=== PATIENT | male | born 1985 | race Caucasian/White ===

== ENCOUNTER 2020-11-06 13:54 | Emergency (ER) | payer OTHER, SELFPAY ==
[2020-11-06 13:55] VITALS: BP 196/114; PULSE 87; RESP 16; TEMP 36.6; O2SAT 97; BMI 32.3
[2020-11-06 14:24] VITALS: BP 147/87; PULSE 75; RESP 14; TEMP 36.2; O2SAT 99; BMI 31.4
[2020-11-06 14:50] VITALS: BP 154/99; PULSE 97; RESP 20; TEMP 36.6; O2SAT 98; BMI 26.4
--- NOTE | 2020-11-06 14:53 | [facility].EDGENADL ---
ED Disposition Clinical Impression: Low back pain Qualifiers: Chronicity: acute Back pain laterality: unspecified Sciatica presence: without sciatica Qualified Code(s): M54.5 - Low back pain Disposition: Home, Self-Care Condition on Discharge: Fair Instructions: DI for Low Back Pain Additional Instructions: Additional instructions for BACK PAIN: See your physician as soon as possible for further evaluation. Return immediately if back pain becomes intolerable, or if fever, numbness or weakness of your legs, loss of control of your bowels or bladder. Additional instructions for CONTROLLED SUBSTANCES: You have been prescribed a medication that is a controlled substance. Controlled substances include pain medications known as opiates and sedative nerve medications known as benzodiazepines. Tramadol, fioricet, and gabapentin are also controlled substances. Some common opiates include: Codeine (such as Tylenol #3) Hydrocodone (Vicodin, Lortab, Lorcet, [place]) Oxycodone (Percocet, Percodan, Oxycodone, Oxy IR) Some common benzodiazepines include: Diazepam (Valium) Lorazepam (Ativan) Alprazolam (Xanax) Clonazepam (Klonopin) Oxazepam (Serax) All of these controlled substances are highly addictive and frequently abused. Misuse can and frequently does lead to addiction as well as overdose and . Medication should be stored in a locked cabinet or other secure storage unit. Do not store the medication in a motor vehicle. Short term supplies, 3 days or less, are prescribed because of the highly addictive nature of the medication. Any of the controlled substance medication NOT taken should be disposed of properly and NOT SAVED. The recommended method of disposing of unused medications is: Place the medicines in a sealable plastic bag. If the medicine is a solid, crush it or add water to dissolve it. Add something undesirable (cat litter, coffee grounds, etc.) Dispose of sealed bag in household trash Do not flush or pour unused medicines down a sink or drain. Controlled substances should not be shared, given away or sold. Because of the addictive nature and frequent abuse, these medications are sometimes stolen. These medications should be kept in a safe place where they cannot be stolen. Do not keep them in your car or purse. Lost or stolen prescriptions for controlled substances WILL NOT BE REFILLED in this emergency department, regardless of whether a police report was filed. Prescriptions: Hydrocod/Acet 5/325 mg [[place] 5/325mg tablet] 1 tab PO Q6HP PRN #10 tab PRN Reason: Pain Transmission Status: [id number] predniSONE [Prednisone 20mg Tab] 20 mg PO BID #10 tab Transmission Status: [id number] Referrals: Eleuterio Tenorio [Primary Care Provider] - - Critical Care Critical Care Time: No Attestation: On 11/06/20, the high probability of a clinically significant, sudden or life threatening deterioration of the following system(s) required my full and direct attention, intervention and personal management. The time I documented below is in addition to time spent performing reported procedures but includes the following listed in this critical care notation. Medical Decision Making - Carlos Alberto Inquiry Pt receiving controlled substance: Yes Carlos Alberto was queried for this patient: Yes Risks and benefits of using a controlled substance: were discussed with pt by me Vital Signs: 11/06/20 13:55 11/06/20 14:24 11/06/20 14:50 Temperature 98 F 97.2 F L 98 F Temperature Source Oral Tympanic Oral Pulse Rate [Radial] 87 75 97 H Respiratory Rate 16 14 20 Blood Pressure [Right Arm] 196/114 H 147/87 H 154/99 H Blood Pressure Mean [Right Arm] 141 107 117 Blood Pressure Position [Right Arm] Sitting Sitting 02 Sat by Pulse Oximetry 97 99 98 Oxygen Delivery Method Room Air Room Air Room Air - Lab Data Lab Results 11/06/20 14:30: Urine Color Yellow, Urine Appea
--- NOTE | 2020-11-06 14:54 | CT_ITS ---
PROCEDURE: CT ABDOMEN PELVIS WO CON CLINICAL INDICATION: R/O STONE COMPARISON: No exams were available for comparison TECHNIQUE: Axial images obtained with sagittal and coronal reformats. All CT scans at the facility use one or more dose reduction, viz: automated exposure control, ma/kV adjustment per patient size (including targeted exams where dose is matched to indication, i.e. head), or iterative reconstruction technique. FINDINGS: Lower thorax: There is minimal bilateral basilar atelectasis ABDOMEN: Liver: No masses or biliary dilatation. Gallbladder: Nondistended. No radio opaque stones. Pancreas: No masses or peripancreatic fluid collections. Spleen: unremarkable Adrenals: unremarkable Kidneys/ureters: The kidneys are normal in size and no calculi and there is no obstructive uropathy ABDOMEN & PELVIS: Stomach bowel: The stomach and duodenal sweep appear normal. The small bowel is normal. Peritoneum: There is a small umbilical hernia containing fat only. Lymph nodes: No enlarged lymph nodes apparent. Vasculature: No evidence of abdominal aortic aneurysm. No retroperitoneal hemorrhage evident. Bones: There is mild diffuse levo scoliotic curvature of the thoracolumbar junction. PELVIS: Reproductive: unremarkable Bladder: Nondistended. No obvious stones or masses. The prostate is borderline enlarged. Appendix: Unremarkable. No distention or periappendiceal phlegmonous change. IMPRESSION: Small umbilical hernia fat only, no acute abdominal or pelvic pathology identified Dictated by: Dr. Kwabena Mariee MD 11/06/2020 15:41 Dr. Kwabena Mariee MD in [place] 11/06/2020 15:41
[2020-11-06 15:00] LABS: Basophils # 0.1 K/mm3 (0-0.2); Basophils % 0.5 % (0.1-2.0); Eosinophils # 0.1 K/mm3 (0.0-0.4); Eosinophils % 1.3 % (0.1-12.0); Hematocrit 44.8 % (42.0-52.0); Hemoglobin 14.8 g/dL (14.1-18.0); Lymphocytes # 2.6 K/mm3 (0.7-4.5); Lymphocytes % 25.4 % (10-50); Mean Corpuscular Hemoglobin 29.8 pg (27.0-31.2); Mean Platelet Volume 8.6 fl (7.4-10.4); Monocytes # 0.5 K/mm3 (0.1-1.0); Monocytes % 4.6 % (1.7-9.3); Neutrophils # 6.9 K/mm3 (1.8-7.8); Platelet Count 322 K/mm3 (142-424); Red Blood Count 4.98 M/mm3 (4.60-6.20); Red Cell Distribution Width 12.2 % (11.5-17.5); White Blood Count 10.1 K/mm3 (4.8-10.8)
[2020-11-06 15:02] LABS: Chloride 103 mmol/L (98-107); Potassium 4.2 mmoL/L (3.5-5.1); Sodium 140 mmol/L (136-145)
[2020-11-06 15:03] LABS: Microscopic, Urine URINE MICROSCOPIC (MICROSCOPIC)
--- NOTE | 2020-11-06 15:03 | CT_ITS ---
PROCEDURE: CT LUMBAR SPINE WO CON CLINICAL HISTORY: low back pain COMPARISON: No exams were available for comparison TECHNIQUE: Axial images obtained with sagittal and coronal reformats. All CT scans at the facility use one or more dose reduction, viz: automated exposure control, ma/kV adjustment per patient size (including targeted exams where dose is matched to indication, i.e. head), or iterative reconstruction technique. FINDINGS: There is mild diffuse levo scoliotic curvature of the thoracolumbar junction. All lumbar vertebrae appear intact. There is moderate disc space narrowing at the L3-4 level, the remaining disc spaces are normal. The spinal canal is normal in size throughout. There is mild diffuse bulging of the annulus fibrosus at the L3-4 level causing mild neural foraminal compromise bilaterally at this level. The remaining disc appear normal. The SI joints are normal. IMPRESSION: Mild levo scoliotic curvature, mild diffuse bulging annulus fibrosus L4-5 Dictated by: Dr. Kwabena Mariee MD 11/06/2020 15:45 Dr. Kwabena Mariee MD in [facility] 11/06/2020 15:45
[2020-11-06 15:05] LABS: Alanine Aminotransferase 58 U/L (12-78); Albumin Level 5.1 g/dl (3.5-5.0); Albumin/Globulin Ratio 1.5 (1.1-1.8); Alkaline Phosphatase 110 U/L (38-126); Anion Gap 10.2 mEq/L (5-15); Aspartate Amino Transferase 51 U/L (17-59); Bilirubin,Total 1.3 mg/dl (0.2-1.3); Blood Urea Nitrogen 12 mg/dl (9-20); Calcium 10.1 mg/dl (8.4-10.2); Carbon Dioxide 31 mmol/L (22.0-30.0); Creatinine Clearance Estimated 165 mL/min (50-200); Estimated Glomerular Filt Rate 110 ml/min (>60); GFR (African American) 133 ML/MIN (>60); Globulin 3.5 g/dL (1.3-3.2); Glucose 100 mg/dl (74-100); Total Protein,Serum 8.6 g/dl (6.3-8.2)
[2020-11-06 15:07] LABS: Appearance,Urine CLEAR (Clear); Bilirubin,Urine Negative (Negative); Blood, Urine Negative (Negative); Color,Urine YELLOW (Yellow); Glucose,Urine (UA) Negative (Negative); Ketones,Urine Negative (Negative); Leukocyte Esterase,Urine Negative (Negative); Nitrate,Urine Negative (Negative); Protein,Urine Negative (Negative)
[2020-11-06 15:13] LABS: Apearance,Urine Clear (Clear); Color,Urine Yellow (Yellow)
[2020-11-06 15:14] LABS: Bilirubin,Urine Negative (Negative); Blood, Urine 2+ (Negative); Glucose,Urine (UA) Negative (Negative); Ketones,Urine Negative (Negative); Protein,Urine Negative (Negative); UTC Leukocyte Esterase,Urine Negative (Negative); UTC Nitrate,Urine Negative (Negative); Urobilinogen,Urine 1 EU/dl (0.2)
[2020-11-06 16:42] VITALS: BP 153/100; PULSE 89; RESP 16; TEMP 36.6; O2SAT 98
== END 2020-11-06 16:43 | disposition home or self-care (01) ==
LOC: UTC 14:37 → ER 14:38
PROVIDERS: Nurse Practitioner Family; Emergency Provider Emergency Medicine; PCP Family Medicine
DX: M54.5 Low back pain (principal)
CPT/HCPCS: 72131; 74176; 80053; 81001; 81003; 85025; 96365; 96375; 99283; J2405

== ENCOUNTER 2022-04-13 18:56 | Outpatient (CLI) | payer SELFPAY | END 2022-04-13 19:37 | disposition home or self-care (01) | PROVIDERS: Visit Provider Nurse Practitioner | DX: Z02.1 Encounter for pre-employment examination (principal) ==

== ENCOUNTER → 2022-07-04 16:53 | Outpatient (CLI) | payer SELFPAY | PROVIDERS: Visit Provider Nurse Practitioner Family | DX: Z02.4 Encounter for examination for driving license (principal) ==